=== PATIENT | female | born 1980 | race Hispanic/Latino ===

== ENCOUNTER 2019-03-26 13:59 | Outpatient (CLI) | payer MEDICAID ==
--- NOTE | 2019-03-26 16:55 | Mammography Report ---
RIGHT BREAST DIAGNOSTIC MAMMOGRAM HISTORY: Right calcifications. These images were taken after a failed attempt today at targeting for stereotactic biopsy. COMPARISON: [facility] mammogram 04/18/2019. FINDINGS: Breast Density: heterogeneously dense breast parenchymal pattern which somewhat lessens the sensitivi ty of the evaluation. Routine views plus lateral and spot magnification lateral and CC views were obtained. The previously identified calcifications are identified at approximately 10:00 and have suspicious morphology. IMPRESSION Suspicious calcifications. Recommend return for another attempt at stereotactic biopsy.. BIRADS 4: Suspicious abnormality. Signer Name: Jose Flores MD Signed: 03/26/2019 4:51 PM Workstation Name: [id number]
== END 2019-03-26 14:00 | disposition home or self-care (01) ==
LOC: SPVWC 13:59
PROVIDERS: ATTEND Surgery
DX: R92.1 Mammographic calcification found on diagnostic imaging of breast (principal)

== ENCOUNTER 2019-04-14 13:59 | Outpatient (CLI) | payer MEDICAID ==
--- NOTE | 2019-04-15 09:03 | Mammography Report ---
STEREOTACTIC PERCUTANEOUS VACUUM ASSISTED CORE BIOPSY RIGHT BREAST History: ABNORMAL MAMMOGRAM, SUSPICIOUS CALCIFICATIONS. Procedure: After informed consent was obtained, the right breast was prepped in sterile fashion. Usin g stereotactic guidance, 1% lidocaine for superficial anesthesia and 2% lidocaine with epinephrine fo r deep anesthesia, 8 gauge mammotome biopsy was performed from a CC from above approach. Samples were obtained around the clock face and removal of physician representative calcifications were confirmed with a sp ecimen radiograph. A biopsy marker was placed at the site. Hemostasis was achieved with minimal effor t and a sterile dressing was applied. The patient tolerated the procedure well and there were no appa rent complications. A post biopsy mammogram confirmed concordant clip placement with removal of at least some of the calc ifications. Pathological specimens were submitted to pathology for analysis. Impression: Successful complicated stereotactic guided vacuum assisted core biopsy of rightbreast . Signer Name: Jose Flores MD Signed: 04/15/2019 8:58 AM Workstation Name: [id number]
--- NOTE | 2019-04-15 09:04 | Mammography Report ---
RIGHT DIGITAL DIAGNOSTIC CLINICAL: For clip placement after stereotactic biopsy. COMPARISON: 02/25/2019 FINDINGS: A biopsy clip is identified at 11:00 and correlates with the site of stereotactic biopsy. A significant number of calcifications have been removed. IMPRESSION: Satisfactory sampling of calcifications and concordant clip placement. Signer Name: Jose Flores MD Signed: 04/15/2019 9:00 AM Workstation Name: [id number]
== END 2019-04-14 14:00 | disposition home or self-care (01) ==
LOC: SPVWC 13:59
PROVIDERS: ATTEND Surgery
DX: N60.91 Unspecified benign mammary dysplasia of right breast (principal); N60.01 Solitary cyst of right breast; N60.11 Diffuse cystic mastopathy of right breast
CPT/HCPCS: 19081; 77065; 88305; A4648

== ENCOUNTER 2021-02-10 10:41 | Outpatient (CLI) | payer MEDICAID ==
--- NOTE | 2021-02-13 12:58 | Mammography Report ---
DIGITAL SCREENING MAMMOGRAM WITH CAD, 02/10/2021 CLINICAL INFORMATION / INDICATION: Routine screening mammography. TECHNIQUE: Digital bilateral 2D mammography was obtained in the craniocaudal and mediolateral obliqu e projections. This examination was interpreted with the benefit of Computer-Aided Detection analysis . COMPARISON: 02/23/2020, 12/18/2018 FINDINGS: Breast Density: There are scattered areas of fibroglandular density. No dominant mass, suspicious calcifications, or architectural distortion in either breast. Biopsy marker is noted in the right breast. IMPRESSION: No mammographic evidence of malignancy. Follow up recommendation: Routine yearly BI-RADS Category 2: Benign. A "normal" or negative report should not discourage follow up or biopsy of a clinically significant f inding. A written summary of these findings will be mailed to the patient. The patient will be entered into a mammography reporting system which will generate a reminder letter for the patient's next appointmen t at the appropriate interval. [employer] recommends yearly mammograms starting at age 40 and continuing as l joseph as a woman is in good health. Breast MRI is recommended for women with an approximate 20-25% or greater lifetime risk of breast cancer, including women with a strong family history of breast or ova anna cancer or who have been treated for Hodgkin's disease. Signer Name: Gwendolyn Woo MD Signed: 02/13/2021 12:53 PM Workstation Name: [id number]
== END 2021-02-10 10:42 | disposition home or self-care (01) ==
LOC: SPVWC 10:41
PROVIDERS: ATTEND Surgery
DX: Z12.31 Encounter for screening mammogram for malignant neoplasm of breast (principal)
CPT/HCPCS: 77063; 77067